=== PATIENT | male | born 1950 | race Caucasian/White ===

== ENCOUNTER 2018-02-26 10:20 | Emergency (ER) | payer MEDICARE, OTHER ==
[2018-02-26] MEDS ORDERED: LIDOCAINE 1% INJ-PF (10 MG/ML) 30 ML SDV INJ ONE (11:15)
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
--- NOTE | 2018-02-26 11:58 | RADIOLOGY REPORT (SQ) ---
EXAM DESCRIPTION: FOOT LEFT COMPLETE COMPLETED DATE/TIME: 02/26/2018 11:26 am REASON FOR STUDY: left great toe injury COMPARISON: None. NUMBER OF VIEWS: Three views. TECHNIQUE: AP, lateral and oblique radiographic images acquired of the left foot. LIMITATIONS: None. FINDINGS: MINERALIZATION: Normal. BONES: On the AP view there is the appearance of a nondisplaced fracture of the terminal tuft of the 1st distal phalanx. JOINTS: No effusions. SOFT TISSUES: No soft tissue swelling. No foreign body. OTHER: No other significant finding. IMPRESSION: Possible nondisplaced fracture of the terminal tuft of the 1st distal phalanx. TECHNICAL DOCUMENTATION: JOB ID: [id number] [employer]- All Rights Reserved Reading location - IP/workstation name: [email or web address]
[2018-02-26] MEDS ORDERED: IBUPROFEN 600 MG TABLET PO ONE (12:13)
[2018-02-26 12:33] VITALS: BP 167/76
== END 2018-02-26 12:33 | disposition home or self-care (01) ==
LOC: ER 10:20
PROC: 0HQRXZZ Repair Toe Nail, External Approach (ICD-10-PCS; principal; 2018-02-26)
DX: S92.425B Nondisplaced fracture of distal phalanx of left great toe, initial encounter for open fracture (principal); W22.09XA Striking against other stationary object, initial encounter; E78.00 Pure hypercholesterolemia, unspecified; Z90.49 Acquired absence of other specified parts of digestive tract
CPT/HCPCS: 99283; 73630; 11760; A9270; J3490

== ENCOUNTER 2019-04-04 12:39 | Day surgery (SDC) | payer MEDICARE, OTHER ==
[2019-04-01 11:11] LABS: ABSOLUTE EOSINOPHILS # (AUTO) 0.1 10^3/uL (0.0-0.6); ABSOLUTE LYMPHOCYTES (AUTO) 1.3 10^3/uL (0.5-4.7); ABSOLUTE MONOCYTES (AUTO) 0.3 10^3/uL (0.1-1.4); ABSOLUTE NEUT (AUTO) 1.9 10^3/uL (1.7-8.2); BASOPHILS % (AUTO) 0.8 % (0-2); EOSINOPHILS % (AUTO) 2.1 % (0-6); HEMATOCRIT 36.4 % (37.9-51.0); HEMOGLOBIN 12.4 g/dL (13.5-17.0); LYMPHOCYTES % (AUTO) 36.5 % (13-45); MEAN CORPUSCULAR HGB CONC 34.2 g/dL (32.0-36.0); MEAN CORPUSCULAR VOLUME 91 fl (80-97); MONOCYTES % (AUTO) 9.3 % (3-13); PLATELET COUNT 217 10^3/uL (150-450); RED BLOOD COUNT 4.01 10^6/uL (4.35-5.55); RED CELL DISTRIBUTION WIDTH 13.4 % (11.5-14.0); SEGMENTED NEUTROPHILS % (AUTO) 51.3 % (42-78); TOTAL CELLS COUNTED % (AUTO) 100 %; WHITE BLOOD COUNT 3.7 10^3/uL (4.0-10.5)
[2019-04-01 11:40] LABS: ANION GAP 11 (5-19); BLOOD UREA NITROGEN 21 mg/dL (7-20); CARBON DIOXIDE 25 mmol/L (22-30); CHLORIDE 109 mmol/L (98-107); GLUCOSE 96 mg/dL (75-110); POTASSIUM 4.9 mmol/L (3.6-5.0); SODIUM 144.9 mmol/L (137-145)
--- NOTE | 2019-04-01 13:08 | EKG REPORT ---
SEVERITY:- OTHERWISE NORMAL ECG - SINUS BRADYCARDIA 41/MIN. : Confirmed by: Omar Hayes MD 01-Apr-2019 13:07:36
[~2019-04-04 12:39] MED LIST: FENTANYL CITRATE INJ/PF 100 MCG/2 ML AMPUL ONE; LACTATED RINGERS 1000 ML IV PRN; LIDOCAINE 0.5% INJ-PF (5 MG/ML) 50 ML SDV SUBCUT PRN; MIDAZOLAM 2 MG/2 ML INJ ONE; PROPOFOL INJ 200 MG/20 ML VIAL IV ONE
[2019-04-04 13:43] LABS: PROTHROMBIN TIME 12.6 SEC (11.4-15.4)
[2019-04-04 13:44] LABS: PARTIAL THROMBOPLASTIN TIME 29.7 SEC (23.5-35.8)
[2019-04-04] MEDS ORDERED: BUPIVACAINE HCL 0.5%-EPI 1:200000 INJ/PF 30 ML VIAL ONE (13:50)
[2019-04-04] MEDS ORDERED: CEFAZOLIN 1 GM/D5W RTU 1 GM/50 ML RTUPB IV ONE (14:16)
[2019-04-04] MEDS ORDERED: OXYCODONE-ACETAMINOPHEN 5-325 MG TABLET PO PRN ×3 (14:34→14:56)
[2019-04-04] MEDS ORDERED: MEPERIDINE HCL/PF INJ 25 MG/1 ML DISP.SYRIN IV PRN (14:34)
[2019-04-04] MEDS ORDERED: FENTANYL CITRATE INJ/PF 100 MCG/2 ML AMPUL IV PRN ×3 (14:34)
[2019-04-04] MEDS ORDERED: PROMETHAZINE HCL INJ 25 MG/1 ML VIAL IV PRN (14:34)
[2019-04-04] MEDS ORDERED: ONDANSETRON HCL INJ/PF 4 MG/2 ML SDV IV PRN (14:34)
[2019-04-04] MEDS ORDERED: DIPHENHYDRAMINE HCL 50 MG/ML VIAL IV PRN (14:34)
[2019-04-04] MEDS ORDERED: MORPHINE SULFATE 10 MG/ML INJ IV PRN (14:34)
--- NOTE | 2019-04-04 14:53 | Operative Report ---
Nonrecallable Operative Report DATE OF SURGERY: 04/04/19 PREOPERATIVE DIAGNOSIS: skin lesion back POSTOPERATIVE DIAGNOSIS: skin lesion back OPERATION: excision skin lesion back SURGEON: ALFA PETER ANESTHESIA: LMAC TISSUE REMOVED OR ALTERED: skin lesion back COMPLICATIONS: none ESTIMATED BLOOD LOSS: 2cc INTRAOPERATIVE FINDINGS: see dictation PROCEDURE: see dictation
--- NOTE | 2019-04-04 14:55 | Discharge Summary ---
Discharge Summary (SDC) - Discharge Final Diagnosis: skin lesion back Date of Surgery: 04/04/19 Condition: Good Referrals: LESLY CHOWDHURY MD [Primary Care Provider] - Discharge Diet: As Tolerated Discharge Activity: No Lifting Over 10 Pounds Report the Following to Your Physician Immediately: Shortness of Breath, Nausea, Vomiting, Unusual Bleeding, Swelling - needs appoint with me in 10-14 days
--- NOTE | 2019-04-04 15:20 | OPERATIVE REPORT E ---
Operative Report NAME: JOJO TEJADA : 1950 AGE: 68Y DATE OF SURGERY: 04/04/2019 ROOM: PREOPERATIVE DIAGNOSIS: UPPER MID BACK SKIN LESION. POSTOPERATIVE DIAGNOSIS: UPPER MID BACK SKIN LESION. OPERATION: WIDE EXCISION UPPER MID BACK SKIN LESION. SURGEON: ALFA PETER M.D. PROCEDURE: The patient was brought to the operating room in awake, alert, and stable condition, placed on the operating table in left lateral decubitus position. A 2 x 3 cm mid back skin lesion was prepped and draped in the usual sterile fashion. An elliptical incision was made around the lesion approximately 4 cm wide x 6 cm long. Dissection was carried down through subcutaneous tissue with Bovie cautery or the 15 blade. Dissection was carried down through the subcutaneous tissue. Then using Bovie cautery, the lesion was excised. Hemostasis was obtained with Bovie cautery. The subcutaneous tissue was reapproximated with interrupted 3-0 Vicryl suture and the skin was reapproximated with interrupted 3-0 Nylon suture. Sterile dressing was applied, which completed the procedure. Estimated blood loss was less than 2 mL. Sponge and needle counts correct x2. The patient was awakened in the operating room, extubated, and transferred to recovery in stable condition. No complications. DICTATING PHYSICIAN: ALFA PETER M.D. [id number] Y#: [id number] ID: [id number] JOB#: [id number] ACCT: [id number] cc:ALFA PETER M.D. >
[2019-04-04 20:08] VITALS: BP 136/82
== END 2019-04-04 16:50 | disposition home or self-care (01) ==
LOC: OROUT 12:39
PROVIDERS: ATTEND Surgery
DX: L72.0 Epidermal cyst (principal); I10 Essential (primary) hypertension; E78.00 Pure hypercholesterolemia, unspecified; J44.9 Chronic obstructive pulmonary disease, unspecified; R00.2 Palpitations; Z88.5 Allergy status to narcotic agent; F17.210 Nicotine dependence, cigarettes, uncomplicated; Z79.891 Long term (current) use of opiate analgesic; Z79.82 Long term (current) use of aspirin; Z79.51 Long term (current) use of inhaled steroids; Z79.899 Other long term (current) drug therapy; Z86.73 Personal history of transient ischemic attack (TIA), and cerebral infarction without residual deficits; Z79.01 Long term (current) use of anticoagulants
CPT/HCPCS: 93005; 36415 ×2; 85025; 85610; 85730; 80048; 88305 ×2; 93010; 00300; 21931; J2250; J3490; J0690; J3010; J2704; 300